=== PATIENT | female | born 1980 | race Caucasian/White ===

== ENCOUNTER 2021-11-28 15:05 | Outpatient (RCR) | payer OTHER | END 2021-12-03 | disposition home or self-care (01) | LOC: WSOH | DX: M25.512 Pain in left shoulder (principal); Y99.0 Civilian activity done for income or pay ==

== ENCOUNTER 2021-12-06 15:02 | Outpatient (RCR) | payer OTHER | END 2022-01-03 | disposition home or self-care (01) | LOC: WSOH | DX: S46.011D Strain of muscle(s) and tendon(s) of the rotator cuff of right shoulder, subsequent encounter (principal); K52.9 Noninfective gastroenteritis and colitis, unspecified; N30.10 Interstitial cystitis (chronic) without hematuria; E06.3 Autoimmune thyroiditis; E03.9 Hypothyroidism, unspecified; J45.909 Unspecified asthma, uncomplicated; J32.9 Chronic sinusitis, unspecified; F17.210 Nicotine dependence, cigarettes, uncomplicated; Y99.0 Civilian activity done for income or pay ==

== ENCOUNTER 2022-01-31 09:56 | Outpatient (RCR) | payer OTHER | END 2022-02-02 | disposition home or self-care (01) | LOC: WSOH | DX: S46.011D Strain of muscle(s) and tendon(s) of the rotator cuff of right shoulder, subsequent encounter (principal); K52.9 Noninfective gastroenteritis and colitis, unspecified; N30.11 Interstitial cystitis (chronic) with hematuria; E06.3 Autoimmune thyroiditis; E03.9 Hypothyroidism, unspecified; J45.909 Unspecified asthma, uncomplicated; J32.9 Chronic sinusitis, unspecified; Y99.0 Civilian activity done for income or pay ==